=== PATIENT | male | born 1955 | race Caucasian/White ===

== ENCOUNTER 2018-09-27 02:59 | Inpatient (IN) | payer BC ==
[~2018-09-27] VITALS: Ht 188 cm; Wt 117.9 kg
[~2018-09-27 02:59] MED LIST: IBU800 M1 PO; PRI20 PO; ZESTRIL5 MG PO
[2018-09-27 03:02] VITALS: Ht 188 cm; Wt 117.9 kg
--- NOTE | 2018-09-27 03:20 | NUR ---
PT BIB C/O BILATERAL LOWER QUADRANT PAIN X1 DAY. DENIES ANY N/V AT THIS TIME. PT ALSO C/O BURNING ON URINATION X1 DAY. PT DENIES ANY INJURY. PT IS AAOX4, NO SOB, RESP E/U, SKIN IS PINK WARM AND DRY. PT WILL WINCE AND C/O PAIN FREQUENTLY. PT GOWNED, PLACED ON FULL CM, NSR, VSS, BED IN LOWEST POSITION, SIDERAIL X1 UP FOR SAFETY, CALL SCHWARTZ WITHIN REACH. AT THE BEDSIDE. AWAITING MSE BY .
--- NOTE | 2018-09-27 03:33 | NUR ---
PRE K LEAD TEACHER AT BEDSIDE FO RBLOOD DRAW.
--- NOTE | 2018-09-27 03:36 | NUR ---
DAVID POOL AT BEDSIDE FOR EKG.
[2018-09-27 04:00] LABS: CARBON DIOXIDE 26.3 mmol/L (21-32); CREATININE SERUM 1.5 mg/dL (0.7-1.3); POTASSIUM SERUM 3.5 mmol/L (3.5-5.1)
[2018-09-27 04:04] LABS: ALBUMIN 3.5 g/dL (3.4-5.0); BILIRUBIN TOTAL 1.8 mg/dL (0.20-1.00); TOTAL PROTEIN, SERUM 7.7 g/dL (6.4-8.2)
[2018-09-27 04:08] LABS: BASOPHIL % 0.4 % (0-2); PLATELET COUNT 224 x10^3mcL (130-400); RED CELL DISTRIBUTION WIDTH 12.3 % (11.5-14.5)
--- NOTE | 2018-09-27 04:38 | NUR ---
PT TAKEN OFF THE FLOOR VIA GURNEY TO IMAGING BY Direct Sitters. PT IN NO DISTRESS, RESP E/U
[2018-09-27] MEDS ORDERED: LISINOPRIL10 MG PO (05:34)
--- NOTE | 2018-09-27 05:34 | NUR ---
PT IN POSITION OF COMFORT IN [place]. PT IS AAOX4, NO DISTRESS NOTED, RESP E/U, SKIN IS PINK WARM AND DRY. PT REPORTS IMPROVED PAIN 3/10 AT THIS TIME. PT ON FULL CM, NSR, SINUS TACHY. WILL CONT TO MONITOR. AT THE BEDSIDE. PT DENIES ANY NAUSE OR VOMITING.
--- NOTE | 2018-09-27 06:19 | NUR ---
PT AWARE OF NPO STATUS
[2018-09-27 06:41] LABS: CHOLESTEROL/HDL RATIO 2.4
--- NOTE | 2018-09-27 06:47 | NUR ---
GAVE REPORT TO BRIANA MASON IN [place].
--- NOTE | 2018-09-27 07:05 | NUR ---
PREOP CHECKLIST COMPLETED, PT TAKEN OFF THE FLOOR TO OPERATING ROOM VIA VERENICE, PT IS AAOX4, NO DISTRESS NOTED, RESPS E/U. SKIN INTACT, WARM AND DRY. ACCOMPANIED NORBERTORSAUL.
[2018-09-27 07:49] LABS: AMPHETAMINE QUAL UR NONE DETECTED (See below)
[2018-09-27 09:41] LABS: microscopic required? YES; urine erythrocyte NEGATIVE (NEGATIVE)
[2018-09-27 10:10] VITALS: BP 110/61
--- NOTE | 2018-09-27 10:15 | NUR ---
PATIENT ARRIVED TO FLOOR WITH MARLON MCFADDEN. PATIENT IN [facility] ABLE TO TRANSFER SELF TO BED. PATIENT IS A/OX4, MILD ABDOMINAL PAIN AT THIS TIME. X3 SURGICAL INCISIONS CDI, AYDEN DRAIN PRESENT DRAINING SANGUINEOUS FLUID. AT BESIDE. INSTRUCTED PATIENT ON POST OP ILEUS, PAIN CONTROL, AND NEED FOR AMBULATION. BOTH PATIENT AND AGREE. CALL LIGHT IN REACH AT THIS TIME.
--- NOTE | 2018-09-27 11:28 | NUR ---
DR ULLOA AND TEAM IN TO SPEAK WITH PATIENT ABOUT PLAN OF CARE. PATIENT HAS MODERATE ABDOMINAL PAIN, PRN NORCO GIVEN. TEAM STATES PATIENT CAN HAVE SOLID FOOD. WILL CONTINUE TO MONITOR FOR PAIN, PATIENT TAUGHT AND AWARE OF IS USE WITH RT AND THIS NURSE.
[2018-09-27 13:33] VITALS: BP 110/61
--- NOTE | 2018-09-27 16:32 | NUR ---
PATIENT CONTINUES TO HAVE R QUADRANT ABDOMINAL PAIN. HE STATES THAT THE PRN NORCO PO AND PRN MORPHINE 2 MG "DOESN'T SEEM TO WORK" WITH 8/[address] CHOU AT [facility] AND IS MADE AWARE. DR CHOU AT THIS TIME STATES IT IS NOT NECESSARY TO ADJUST PAIN CONTROL AT THIS TIME. NOTIFIED PATIENT AND MADE AWARE. WILL CONTINUE TO ENCOURAGE AMBULATION, OOB, INCENTIVE SPIROMETER USE AND CURRENT PAIN CONTROL REGIMENT. CALL LIGHT IN REACH AT THIS TIME.
[2018-09-27 16:54] VITALS: BP 113/53
--- NOTE | 2018-09-27 18:13 | NUR ---
PATIENT WORRIED DUE TO SWEATING. BLINDS CLOSED, ORAL AND TEMPORAL TEMPS TAKEN, 98.6. PATIENT CONTINUES TO STATE HE HAS ABDOMINAL PAIN, PRN NORCO GIVEN, PATIENT REFUSES PRN MORPHINE AT THIS TIME, STATING THAT "IT DOESN'T DO ANYTHING ANYWAYS", PATIENT ALSO TAUGHT TO SPLIT ABDOMEN WITH WARM BLANKET AND PILLOW. WILL ENDORSE TO ONCOMING NURSE. CURRENTLY EATING DINNER TRAY, TOLERATING. CALL LIGHT IN REACH.
--- NOTE | 2018-09-27 19:46 | NUR ---
BEDSID HANDS OFF PERFORMED WITH OUT GOING NURSE SEKOU-MARLON. PATIENT ALERT AND ORIENTED X4, SPEECH CLEAR. S/SP LAP/APPY RUPTURED, X3 SURGICAL INCISION WITH DERMA ARMANDO, SITES CLEAR, AYDEN NOTED TO LEFT SIDE OF ABDOMEN DRAINING SS FLUID. ABDOMEN TENDER TO TOUCH, HYPOACTIVE BS, DENIED N/S. TOLERATED REGULAR DIET PER PATIENT, NO GAS NO BUPR REPORTED. VOIDED WITHOUT DIFF. PATIENT COMPLAINED OF POST SURGICAL INCISION PAIN RATED AT 7/10 MEDICATED WITH MS PER ORDERED PRN, COMFORT MEASURES MAINTAINED. BS CLEAR ALL GUERRERO DIMINISHED BASES, PATIENT ON ROOM AIR SAT 97%, PATIENT WAS ABLE TO PERFORMED INCENTIVE SPIROMETRY EXERCISE AT 1500 10X ENCOURAGED AND INFORMED ABOUT ITS PURPOSE AND INPORTANCE. SAFETY PRECAUTIONS MAINTAINED. SCD'S TO BLE IN USE.IV SITE TO RT AC PATENT AND INTACT. WILL CONTINUE TO MONITOR.
[2018-09-27 20:12] VITALS: BP 106/60
--- NOTE | 2018-09-27 21:32 | NUR ---
SCHEDULED MED ADMINISTERED, PATIENT ABLE TO TAKE PILLS, INFORMED OF ITS PURPOSE AND ACTION PRIOR. ASSITED IN SITTING AT EDGE OF BED, HEARD PATIENT BURPED. MEDICATED WITH NORCO SINCE MS ONLY TOOK THE PAIN LEVEL TO 3/10. WILL MONITOR EFFECTIVENESS.
--- NOTE | 2018-09-27 22:41 | NUR ---
PATIENT FINALLY STOOD UP AND TOOK SOME STEPS, FELT LITTLE BETTER STATED. ENCOURAGED IS AND AMBULATION.WILL CONTINUE TO MONITOR.
--- NOTE | 2018-09-28 01:08 | NUR ---
COMPLAINED OF ABDOMINAL SURGICAL PAIN RATED AT 7/10, MEDICAETD PRN. DT=640/59, MAP=81, HR=60BPM, SAT ON RA 98%. ALSO REQUESTED FOR SLEEPING MEDS. MEDICATED PRN. WILL CHECK EFFECTIVENESS.
--- NOTE | 2018-09-28 02:07 | NUR ---
PATIENT SLEEPING OFF AND ON, RATED PAIN AT 3/10. COMFORTABLE. WILL CONTINUE TO MONITOR.
--- NOTE | 2018-09-28 02:44 | NUR ---
PATIENT CALLED AND REQUESTED TO ASSIST HIM IN AMBULATORY TO TRY TO EXPELL GAS, PATIENT AMBULATION WITH ASSIST FROM ROOM TO HALLWAY THE LLWAY,HEARD HIM BURPED NUMEROUS TIMES, STATED WAS PAINFUL TO WALK BUT FELT BETTER AFTERWARDS. INFORMED HIM THE IMPORTANCE OF AMBULATION. BACK IN BED WITHOUT ANY ISSUES. WILL CONITNUE TO MONITOR.
--- NOTE | 2018-09-28 04:22 | NUR ---
COMPLAINED OF POST SURGICAL ABDOMINAL PAIN, RATED AT 6/10 MORPHINE SULFATE NOT TIME YET TO BE GIVEN, NORCO GIVEN INSTEAD, WILL MONITOR EFFECTIVENESS.
--- NOTE | 2018-09-28 05:17 | NUR ---
DR ZAVALA INFORMED ABOUT PATIENT PAIN. WILL COME SEE PATIENT.
--- NOTE | 2018-09-28 05:31 | NUR ---
DR ZAVALA WENT TO PATIENT ROOM AND SPOKE TO HIM.
--- NOTE | 2018-09-28 05:49 | NUR ---
MEDICATED PRN FORM COMPLAINT OF ABDOMINAL SURGICAL PAIN. WILL CHECK EFFECTIVENESS.
[2018-09-28 05:51] VITALS: BP 112/52
[2018-09-28 06:24] LABS: PLATELET COUNT 184 x10^3mcL (130-400)
--- NOTE | 2018-09-28 06:28 | NUR ---
PATIENT SLEPT OFF AND ON DURING THE SHIFT, WAS MEDICATED WITH MORPHINE SULFATE AND NORCO ALTERNATELY FOR COMPLAINT OF ABDOMINAL SURGICAL PAIN,RECEIVED MIN RELIEF. DR CHOU WAS IN PATIENT ROOM EARLIER AND UPDATED PATIENT WITH CONDITION AND PLAN OF CARE. VOIDED WITHOUT DIFF. AYDEN DRAINED SS FLUID 80 ML, EMPTIED AND COMPRESSED FOR SUCTION, DRESSING CDI, INCISION X3 NO BLEEDING AT SITE,DIDNT PASS GAS YET, BURPED 5X. HAD AMBULATED X1, ENCOURAGED TO DO MORE THIS MORNING. SAFETY PRECAUTIONS MAINTAINED. WILL ENDORSE CONTINUITY OF CARE TO INCOMING NURSE.
[2018-09-28 06:45] LABS: CALCIUM 8.7 mg/dL (8.5-10.1); CARBON DIOXIDE 29.2 mmol/L (21-32); CREATININE SERUM 1.4 mg/dL (0.7-1.3)
--- NOTE | 2018-09-28 07:20 | NUR ---
RECEIVED PATIENT SITTING UP IN BED A/O X4, CLEAR SPEECH, NO NEURO DEFICITS NOTED. DENIES ANY CHEST PAIN. BREATHING EVEN AND UNLABBORED ON O2 1 L/MIN VIA NC, O2 SAT 97%, DENIES SOB. PATIENT IS S/P LAP APPY ON 09/27/18 WITH INCISION X3 TO ABD CLOSED WITH DERMABOND AND AYDEN DRAIN TO LEFT SIDE OF ABD WITH SEROSANGUINOUS DRAINAGE NOTED, DSG CDI. IV TO RFA INTACT INFUSING IVF WELL FREE FROM REDNESS AND INFILTRATION. PATIENT IS CALM WITH CARE. INSTRUCTED TO CALL FOR ASSISTANCE IF NEEDED. SAFETY PRECAUTIONS MAINTAINED. WILL MONITOR.
--- NOTE | 2018-09-28 07:28 | NUR ---
BEDSIDE HANDS OFF PERFORMED WITH INCOMING NURSE FIDEL-MARLON.
--- NOTE | 2018-09-28 08:15 | NUR ---
PATIENT C/O SHARP ABD PAIN 10/15, OFFERED NORCO PO AND MAY ALSO MEDICATE PATIENT WITH MORPHINE IVP FOR BREAKTHROUGH PAIN IF STILL IN PAIN, BUT PATIENT STATED "NO, WHY BOTHER" AND "NEITHER MEDICATION HELPS". PATIENT REFSUED PAIN MEDICATION AT THIS TIME, FAMIL AT BEDSIDE. ENCOURAGED PATIENT TO NOTIFY MD WHEN ROUNDS ARE MADE, PATIENT VERBALIZED UNDERSTANDING, CALM AND COOPERATIVE WITH CARE. ALL NEEDS ATTENDED TO, SAFETY PRECAUTIONS MAINTAINED. US TECH AT BEDSIDE.
--- NOTE | 2018-09-28 08:43 | NUR ---
IVF DECREASED TO 100 ML/HR PER DR. CHOU ORDERS.
[2018-09-28 09:29] VITALS: BP 107/61
--- NOTE | 2018-09-28 11:15 | NUR ---
PATIENT SITTINGUP IN BED, NO DISTRESS NOTED, PROVIDED PATIENT WITH A CUP OF ICE CHIPS PER PATIENT REQUEST. ALL NEEDS ATTENDED TO. SAFETY PRECAUTIONS MAINTAINED. WILL MONITOR.
--- NOTE | 2018-09-28 11:40 | NUR ---
AT 1132: PATIENT C/O NAUSEA, MEDICATED WITH ZOFRAN 4 MG IVP Q4H PRN. PATIENT ALSO C/O SHARP ABD PAIN 10/10, MEDICATED WITH MORPHINE IVP (SEE eMAR). ALL NEEDS ATTENDED TO, SAFETY PRECAUTIONS MAINTAINED. WILL MONITOR.
--- NOTE | 2018-09-28 13:35 | NUR ---
SPOKE WITH DR. PETERSON AND INFORMED HER PATIENT IS C/O SHARP ABD PAIN. ALSO INFORMED HER PATIENT RECEIVED MORPHINE AT 1140 (SEE eMAR); PATIENT WAS OFFERED NORCO PO BUT PATIENT REFUSED MEDICATION, STATED IT DOES NOT WORK. PER DR. SEYMOUR SHE WILL SPEAK WITH DR. KNIGHT REGARDING PAIN MEDICATION MANAGMENT. NO FURTHER ORDERS RECEIVED. WILL MONITOR.
[2018-09-28 13:44] LABS: BAND NEUTROPHIL 12 % (0-10); BASOPHIL 0 % (0-2); MONOCYTE 5 % (0-7); PLATELET MORPHOLOGY GIANT PLATELET SEEN; SEGMENTED NEUTROPHILS 76 % (37-75); rbc morphology (normal/abnorm) NORMAL (NORMAL)
--- NOTE | 2018-09-28 14:15 | NUR ---
PATIENT C/O SHARP ABD PAIN 12/15, RECEIVED AN ORDER FOR ONE TIME DOSE OF DILAUDID 0.5 MG IVP, AT FIRST PATIENT REFUSED MEDICATION, DR. CHOU MADE AWARE AND CAME TO SPEAK WITH PATIENT. PATIENT AGREED TO TAKE MEDICATION, MEDICATED WITH DILAUDID ONE TIME (SEE eMAR). ALL NEEDS ATTENDED TO. SAFETY PRECAUTIONS MAINTAINED. WILL MONITOR.
--- NOTE | 2018-09-28 14:35 | NUR ---
DR. REA AT BEDSIDE TO SPEAK WITH AND ASSESS PATIENT. INFORMED DR. REA OF CURRENT OUTPUT OF AYDEN DRAIN OF 110, PATIENT DENIES PASSING GAS, AND STATES HE HAS ONLY GOT UP OUT OF BED TO WALK TO RESTROOM. DR. REA ENCOURAGED PATIENT TO GET UP AND WALK IN HALLWAY TO PREVENT PNA, PATIENT AND VERBALIZED UNDERSTANDING, PT S/L AT THIS TIME SO PATIENT CAN WALK, WILL RECONNECT WHEN PATIENT IS BACK IN BED, WILL NOTIFY GUN PERFORATOR TO HELP PATIENT. ALL QUESTIONS AND CONCERNS ADDRESSED. SAFETY PRECAUTIONS MAINTAINED, WILL MONITOR.
--- NOTE | 2018-09-28 15:44 | NUR ---
PATIENT SEEN RESTING IN BED COMFORTABLY WITH EYES CLOSED, BREATHING EVEN AND UNLABBORED, NO DISTRESS NOTED. SPOKE WITH AT BEDSIDE WHO STATED PATIENT DID GET UP TO WALK IN HALLWAY, NURSE AID ALSO STATED PATIENT WALKED. WILL CONTINUE TO ENCOURAGE PATIENT TO WALK TOLERATED IN HALLWAY. SAFETY PRECAUTIONS MAINTAINED. WILL MONITOR.
--- NOTE | 2018-09-28 16:47 | NUR ---
PATIENT C/O SHARP ABD PAIN 10/15, MEDICATED WITH MORPHINE IVP (SEE eMAR). ALL NEEDS ATTENDED TO, SAFETY PRECAUTIONS MAINTAINED. WILL MONITOR.
[2018-09-28 17:50] VITALS: BP 109/56
--- NOTE | 2018-09-28 18:04 | NUR ---
PATIENT SITTING UP IN BED C/O NAUSEA, MEDICATED WITH ZOFRAN 4 MG IVP (SEE eMAR). IV TO LFA INTACT INFUSING IVF WELL FREE FROM REDNESS AND INFILTRATION. ALL NEEDS ATTENDED TO DURING SHIFT. PATIENT IS CALM WITH CARE. INSTRUCTED TO CALL FOR ASSISTANCE IF NEEDED. SAFETY PRECAUTIONS MAINTAINED. WILL ENDORSE CARE TO ONCOMING NURSE.
--- NOTE | 2018-09-28 19:50 | NUR ---
RECEIVED REPORT FROM DAY SHIFT RN. PT RESTING IN BED. NO SOB ON ROOM AIR. PT C/O ABD DISCOMFORT. PT WANTS "SOMETHING FOR GAS." DENIES N/V AT THIS TIME. IV TO LFA, NS INFUSING. ABD INCISION X3 CLOSED WITH DERMABOND. AYDEN DRAIN TO LEFT SIDE OF ABD WITH SEROSANGUINOUS DRAINAGE, DRESSING C/D/I. SAFETY MEASURES IN PLACE. BED IN LOWEST POSITION. SIDE RAILS UP X2. INSTRUCTED PT TO USE THE CALL LIGHT FOR ASSISTANCE. CALL LIGHT WITHIN REACH.
[2018-09-28 20:56] VITALS: BP 106/68
--- NOTE | 2018-09-28 21:20 | NUR ---
DR ZAVALA AT BEDSIDE. ENCOURAGED PT TO AMBULATE TO RELIEVE GAS DISCOMFORT.
--- NOTE | 2018-09-29 00:41 | NUR ---
ZOFRAN GIVEN FOR NAUSEA.
--- NOTE | 2018-09-29 01:00 | NUR ---
PT RESTING WITH EYES CLOSED. NO SOB ON ROOM AIR. NO FACIAL GRIMACING. CALL LIGHT WITHIN REACH. WILL CONTINUE TO MONITOR.
[2018-09-29 05:05] VITALS: BP 113/64
[2018-09-29 06:42] LABS: PLATELET COUNT 260 x10^3mcL (130-400); RED CELL DISTRIBUTION WIDTH 13.5 % (11.5-14.5)
--- NOTE | 2018-09-29 06:47 | NUR ---
PT RESTED IN INTERVALS. NO SOB ON ROOM AIR. PT AMBULATED ALONG THE HALLWAY X3. PT STATES BURPING, BUT NOT PASSING GAS. AYDEN DRAIN INTACT, EMPTIED TOTAL OF 260 ML OF SEROSANGUINOUS DRAINAGE. ABD INCISION X3 INTACT, NO BLEEDING. ENCOURAGED PT TO AMBULATE. SAFETY MEASURES MAINTAINED. CALL LIGHT WITHIN REACH. WILL ENDORSE CONTINUITY OF CARE TO DAY SHIFT RN.
--- NOTE | 2018-09-29 08:00 | NUR ---
PATIENT RECEIVED ALERT AND OOB AND AMBULATING THE HALLWAY. PATIEN TIS GROANING AND WHINCING HE WALKS AND ADVISED HOW IMPORTANT AMBULATION, DEEP BREATHING IS. PATIENT HAS APPARENTLY HAD HICCUPS AND WANTS THE MEDICATION FOR THIS. NO HICCUPS NOTED AT THIS TIME. HE COMPLAINTS OF NAUSEA WELL. GAVE BOTH THE ZOFRAN AND THORAZINE ORDERED. PATIENT IS COMPLAINING HE CANT SWALLOW PILLS AND WANTS TO CHEW THE MEDICATION. PATIENT THOUGH HAS ADVISED THE MEDICATION TASTES LIKE SOAP AND MAY WANT TO CONSIDER JUST SALLOWING IT. PATIENT COMPLAINED OF THE THORAZINE BURNING AND LET OUT A LITTLE SCREAM. PATIENT HAS BEEN VERY ANAMATED ABOUT THE DISCOMFORT AND STATES HE HAS PAIN WITH URINATION AND HE DOES NOT THINK IT SHOULD HURT SO BAD. HE HAS BEEN ASKIGN STAFF TO RAISE ADN LOWER THE BED AND DIRRECTED HIM TO THE BED CONTROLS AND ENCOURAGE TO DEEP BREATH AND TO AMBULATE. OOB TO THE RESTROOM AND TOLERATED WELL. HE HAS NOT HAD A BM YET TODAY AND HAS BEEN BURING AND PASSING GAS. VITALS AT THIS TIME ARE STABLE AT 98.3, 75, 16, 113/64, 96% ON ROOM AIR. PATIENT AHS AYDEN TO DRAINAGE AND THE OUTPUT OIS SEROUS SANGUINOUS AND NOTED LABS ARE THE WBC AT 17.2, AND THE CREATININE AT 1.4, AND THE PATIENT HAS BEEN ON ZOSYN WITH NO ADVERSE REACTION. WILL CONTNUE TO MONITOR INDICATED. T
--- NOTE | 2018-09-29 09:00 | NUR ---
SEEN BY THE RESIDENTS AND PLAN OF CARE WAS DISCUSSED.
[2018-09-29 09:43] VITALS: BP 141/77
--- NOTE | 2018-09-29 10:00 | NUR ---
PATIENT GIVEN NORCO AFTER GETTING THE MEDICAITON REORDERED. BUTCH SANTOS ROSELIA THTE BACK, SHOULDERS AND NECK.
--- NOTE | 2018-09-29 10:00 | NUR ---
AND ANOTHER FEMALE AT BEDSIDE AND SUPPORTIVE WITH CARE. THE WALKED THE PATIENT IN THE HALLWAY AND APPEARS TO HAVE TOLERATED WELL.
[2018-09-29 10:19] LABS: BAND NEUTROPHIL 9 % (0-10); BASOPHIL 0 % (0-2); MONOCYTE 6 % (0-7); PLATELET MORPHOLOGY GIANT PLATELET SEEN; SEGMENTED NEUTROPHILS 80 % (37-75); rbc morphology (normal/abnorm) ABNORMAL (NORMAL); tear drop cell (dacryocyte) 1+
[2018-09-29 10:24] LABS: CALCIUM 8.9 mg/dL (8.5-10.1); CARBON DIOXIDE 24.9 mmol/L (21-32); CREATININE SERUM 1.6 mg/dL (0.7-1.3); POTASSIUM SERUM 3.7 mmol/L (3.5-5.1)
--- NOTE | 2018-09-29 13:16 | NUR ---
PATIENT GIVEN THE MYLOCON AND HE WAS ANXIOUS ABOUT TAKING THIS AND SEEMS HE HAS BEEN ANXIOUS ABOUT MANY THINGS. ENCOUAGED TO TRUST THE STAFF AND FOLLOW DIRECTIONS. PATIENT IS VERY DISTRACTED AND HAS SOME RESISTANCE TO CARE. WILL MONITOR FOR ANY AFFECT AT THIS TIME
--- NOTE | 2018-09-29 16:18 | NUR ---
PATIENT OOB AND WHINCING HE WALKS THE HALLWAY. BACK TO BED NOW AND RESTING. WILL CONTINUE TO MONITOR.
[2018-09-29 18:16] VITALS: BP 135/71
--- NOTE | 2018-09-29 19:40 | NUR ---
RECEIVED REPORT FROM DAY SHIFT RN. PT SITTING UP IN BED. AA&O X4. BREATHING EVEN AND UNLABORED. NO DISTRESS NOTED. IV TO LEFT WRIST, D51/2 NS INFUSING. ABD INCISIONS X3 WITH DERMABOND. AYDEN DRAIN WITH SEROSANGUINOUS OUTPUT, DRESSING INTACT. ENCOURAGED PT TO USE THE I.S. AND TO AMBULATE. SAFETY MEASURES IN PLACE. BED IN LOWEST POSITION. SIDE RAILS UP X2. INSTRUCTED PT TO USE THE CALL LIGHT FOR ASSISTANCE. CALL LIGHT WITHIN REACH. AT BEDSIDE.
[2018-09-29 21:38] VITALS: BP 125/68
--- NOTE | 2018-09-29 23:54 | NUR ---
AMBIEN GIVEN FOR INSOMNIA.
--- NOTE | 2018-09-30 01:00 | NUR ---
DRESSING AROUND AYDEN DRAIN WET. SECURED THE AYDEN DRAIN AND CHANGED THE DRESSING. PT TOLERATED IT. NO C/O PAIN. NO DISTRESS NOTED.
[2018-09-30 05:16] VITALS: BP 120/45
--- NOTE | 2018-09-30 06:38 | NUR ---
PT RESTED IN INTERVALS THROUGHOUT SHIFT. NO SOB ON ROOM AIR. NO C/O PAIN. AYDEN DRAIN WITH 140 ML SEROSANGUINOUS OUTPUT. DRESSING AROUND AYDEN DRAIN SITE SATURATED. DRESSING CHANGED X2 DURING SHIFT. DR ZAVALA MADE AWARE. NO NEW ORDERS AT THIS TIME. PT STATES BURPING BUT NOT PASSING GAS YET. PT AMBULATES ALONG THE HALLWAY. SAFETY MEASURES MAINTAINED. CALL LIGHT WITHIN REACH. WILL ENDORSE CONTINUITY OF CARE TO DAY SHIFT RN.
[2018-09-30 06:48] LABS: BASOPHIL % 0.2 % (0-2); PLATELET COUNT 249 x10^3mcL (130-400)
[2018-09-30 07:13] LABS: CALCIUM 8.6 mg/dL (8.5-10.1); CARBON DIOXIDE 33.2 mmol/L (21-32); CREATININE SERUM 1.4 mg/dL (0.7-1.3); POTASSIUM SERUM 3.6 mmol/L (3.5-5.1)
--- NOTE | 2018-09-30 07:45 | NUR ---
ALERT AND ORIENTED. BREATHING FREELY ON RA. DENIED NEED FOR PAIN MED AT THIS TIME. ALTHOUGH PT IS GETTING HICK UPS AGAIN. WILL ADMIN THORAZINE. D51/2 NS INFUSING 100 CC HOUR TO LEFT WRIST. INDEPENDENT W ADL'S. AMBULATORY. PASSING SM AMT GAS THIS AM. FULL LIQUID DIET. DRESSING TO ABD SURGICAL SITE MOIST WITH BEIGE DRAINAGE. AYDEN DRAIN WITH SCANT AMT SEROUS FLUID. CALL LIGHT WITHIN REACH.
[2018-09-30 08:19] VITALS: BP 110/44
[2018-09-30] MEDS ORDERED: IBUPROFEN400 MG PO (10:06)
--- NOTE | 2018-09-30 12:19 | NUR ---
REMOVED EXSISTING DRESSING STAINED WITH YELLOW DRAINAGE FROM AYDEN DRAIN SITE ON ABD. RECOVERED WITH DRAIN GAUZE AND ABD PADS X 2 AND PAPER TAPE. INCISIONS APPROXIMATED PINK AT SITES. TOLERATED WELL.
[2018-09-30 16:50] VITALS: BP 106/56
--- NOTE | 2018-09-30 18:12 | NUR ---
RESTING QUIELTY. TOLERATES FULL LIQUID DIET. VSS. AFEBRILE. AYDEN DRAIN DRAINING SEROSANGUINOUS FLUID, 50 CC THIS SHIFT. SEEN BY DR. REA TODAY. BRP. CONTINUES ON D51/2 NS 100 CC HOUR AND ZOSYN IV ABX. DRESSING CHANGE X 1. DRAINAGE NOTED AROUND AYDEN DRAIN SITE. CALL LIGHT WITHIN REACH. INDEPENDENT WITH ADL'S.
--- NOTE | 2018-09-30 19:30 | NUR ---
RECIEVED PT IN NO ACUTE DISTRESS. AOX4. MED SURG. BREATHING E/U. S/P LAP APPY 09/27. 3 ABD LAP SITES WITH DERMABOND, CDI. AYDEN DRAIN WITH DRESSING CDI, MODERATE SEROSANGEINOUS OUPUT NOTED. C/O 2/10 INCISIONAL PAIN, STATES IS TOLERATE AND DOES NOT WANT MEDS. FREQUENT HICCUPS NOTED. IV TO LW, PATENT AND INFUSING. CONTACT PRECAUTIONS MAINTAINED. BED IN LOWEST POSITION, 2 SIDE RAILS UP, CALL LIGHT IN REACH. INSTRUCTED TO CALL FOR ASSISTANCE.
[2018-09-30 22:18] VITALS: BP 101/53
--- NOTE | 2018-10-01 02:41 | NUR ---
PT C/O NUMBNESS TO LLE. DR. ZAVALA MADE AWARE. AT BEDSIDE TO ASSESS.
[2018-10-01 05:51] VITALS: BP 131/42
[2018-10-01 06:34] LABS: BASOPHIL % 0.8 % (0-2); PLATELET COUNT 222 x10^3mcL (130-400); RED CELL DISTRIBUTION WIDTH 13.4 % (11.5-14.5)
--- NOTE | 2018-10-01 06:50 | NUR ---
PT AMBULATED AROUND UNIT MULTIPLE TIMES OVERNIGHT. ABD INCISIONS REMAIN INTACT. NO C/O PAIN. WILL ENDORSE TO ONCOMING RN.
[2018-10-01 06:54] LABS: CALCIUM 8.1 mg/dL (8.5-10.1); CARBON DIOXIDE 26.3 mmol/L (21-32); CREATININE SERUM 1.4 mg/dL (0.7-1.3); POTASSIUM SERUM 3.2 mmol/L (3.5-5.1)
--- NOTE | 2018-10-01 07:48 | NUR ---
A+OX4, NO RESPRIATORY DISTRESS NOTED, DENIES PAIN, MEDSURG, PULSES MODERATE AND EQUAL ALICE, NO EDEMA NOTED, LUNG SOUNDS CTA, TOLERATING RA, BOWEL SOUNDS ACTIVE, VOIDING FREELY, AMBULATORY, ABD INCISION X3 WITH DERMABOND, AYDEN DRAIN TO L ABD, CDI, IV IN L WRIST WITH D5 1/2 NS @ 100 ML/HR, SITE WNL, CALL LIGHT WITHIN REACH.
[2018-10-01 08:50] VITALS: BP 115/61
--- NOTE | 2018-10-01 10:30 | NUR ---
PT AMBUALTING AROUND UNIT INDEPENDENTLY, NO RESPIRATORY DISTRESS NOTED, DENIES PAIN.
--- NOTE | 2018-10-01 12:30 | NUR ---
PT RESTING IN BED, NO RESPIRATORY DISTRESS NOTED, STATES PAIN IS TOLERABLE AT THIS TIME, CALL LIGHT WITHIN REACH.
--- NOTE | 2018-10-01 16:09 | NUR ---
PT COMPLAINING OF PAIN IN L WRIST IV, IV LEAKING AND PAINFUL TO FLUSH, IV IN L WRIST REMOVED WITH CATHETER INTACT, GAUZE AND TAPE PLACED ON SITE. NEW IV PLACED IN RFA BY VICTORIANO MASON, SITE WNL,BLOOD RETURN PRESENT, INFUSING WELL. DRESSING TO ABD INCISIONS LEAKING, NEW DRESSING PLACED BY VICTORIANO MASON. CALL LIGHT WITHIN REACH.
[2018-10-01 16:24] VITALS: BP 125/54
--- NOTE | 2018-10-01 17:31 | NUR ---
PT RESTING IN BED, NO RESPRIATORY DISTRESS NOTED, DENIES PAIN, CALL LIGHT WITHIN REACH.
--- NOTE | 2018-10-01 17:33 | NUR ---
30 ML YELLOW FLUID EMPTIED FROM AYDEN DRAIN, CDI.
--- NOTE | 2018-10-01 18:54 | NUR ---
PT RESTING IN BED, NO RESPIRATORY DISTRESS NOTED, STATES PAIN IS TOLERABLE AT THIS TIME, CALL LIGHT WITHIN REACH.
--- NOTE | 2018-10-01 19:14 | NUR ---
ENDORSED CARE TO MARIUSZ MASON.
--- NOTE | 2018-10-01 19:30 | NUR ---
PT SEEN, SITTING AT EDGE OF BED, ALERT AND ORIENTED, DENIES HEADACHE OR DIZZINESS, BREATHING EVEN AND UNLABORED, LUNG SOUNDS CLEAR, ON ROOM AIR WITH NO RESP DISTRESS NOTED, IS AT BEDSIDE, IVF INFUSING WELL, PULSES PALPABLE, NO EDEMA NOTED, AMBULATORY WITH STEADY GAIT, S/P LAP APPY WITH AYDEN DRAINING SEROSANGUINOUS OUTPUT, 3 INCISIONS WITH DERMABOND, (+) GAS AND BM AFTER SURGERY, VOIDING FREELY, NEEDY AT TIMES, NO DISTRESS NOTED, WILL KEEP TO MONITOR.
[2018-10-01 20:39] VITALS: BP 123/60
--- NOTE | 2018-10-02 05:35 | NUR ---
PT AWAKE AND AMBULATING IN THE HALLWAY, SLEPT ON AND OFF WHOLE NIGHT, IVF INFUSING WELL, NO FEVER SINCE BEGINNING OF SHIFT, TOTAL OUTPUT FROM AYDEN-45 ML SEROSANGUINEOUS COLOR, REMAINS ON CONTACT ISOLATION, NO DISTRESS NOTED, WILL KEEP TO MONITOR.
[2018-10-02 05:53] VITALS: BP 147/73
[2018-10-02 06:24] LABS: CARBON DIOXIDE 23.3 mmol/L (21-32); CREATININE SERUM 1.4 mg/dL (0.7-1.3); POTASSIUM SERUM 3.6 mmol/L (3.5-5.1)
[2018-10-02 06:43] LABS: BASOPHIL % 0.6 % (0-2); PLATELET COUNT 245 x10^3mcL (130-400); RED CELL DISTRIBUTION WIDTH 13.4 % (11.5-14.5)
--- NOTE | 2018-10-02 07:13 | NUR ---
BEDSIDE HANDOFF REPORT DONE WITH DAGOBERTO-RN, ALL QIESTIONS ANSWERED AND CONCERNS ADDRESSED.
--- NOTE | 2018-10-02 07:59 | NUR ---
DR COBOS AT BEDSIDE TO ASSESS PT, REMOVED AYDEN DRAIN WITH CATHETER INTACT. I PLACED A NEW DRESSING ON INCISION SITE WITH 4X4S AND ABD PAD ORDERED BY DR REA. A+OX4, NO RESPIRATORY DISTRESS NOTED, MEDSURG, PULSES MODERATE AND EQUAL ALICE, NO EDEMA NOTED, LUNG SOUNDS CTA, TOLERATING RA, BOWEL SOUNDS ACTIVE, VOIDING FREELY, GENERALIZED WEAKNESS, AMBULATORY, ABD INCISIONS X3 WITH DERMABOND COVERED WITH 4X4S AND ABD PADS, CDI, IV IN RFA WITH D5 1/2 NS @ 100 ML/HR, SITE WNL.
--- NOTE | 2018-10-02 09:05 | NUR ---
PT RESTING IN BED, COMPLAINING OF ABD CRAMPING, REQUESTING TYLENOL, TYLENOL PO GIVEN, AT BEDSIDE, CALL LIGHT WITHIN REACH.
[2018-10-02 09:08] VITALS: BP 131/70
--- NOTE | 2018-10-02 09:39 | NUR ---
PT AMBULATING AROUND UNIT INDEPENDENTLY, NO RESPIRATORY DISTRESS NOTED, GAIT STEADY.
--- NOTE | 2018-10-02 11:56 | NUR ---
PT RESTING IN BED, NO RESPIRATORY DISTRESS NOTED, DENIES PAIN, CALL LIGHT WITHIN REACH.
--- NOTE | 2018-10-02 14:34 | NUR ---
PT AMBULATING AROUND UNIT INDEPENDENTLY, GAIT STEADY, NO RESPRIATORY DISTRESS NOTED.
[2018-10-02 16:12] VITALS: BP 120/57
--- NOTE | 2018-10-02 18:39 | NUR ---
PT RESTING IN BED, NO RESPIRATORY DSITRESS NOTED, DENIES PAIN, AT BEDSIDE, CALL LIGHT WITHIN REACH.
--- NOTE | 2018-10-02 19:23 | NUR ---
ENDORSED CARE TO MARIUSZ MASON.
--- NOTE | 2018-10-02 19:46 | NUR ---
PT SEEN, SITTING AT EDGE OF BED, ALERT AND ORIENTED X 4 AND VERY VERBALLY RESPONSIVE, DENIES HEADACHE OR DIZZINESS, BREATHING EVEN AND UNLABORED, LUNG SOUNDS CLEAR, ON ROOM AIR WITH NO RESP DISTRESS NOTED, IS AT BEDSIDE, IVF INFUSING WELL, PULSES PALPABLE, NO EDEMA NOTED, AMBULATORY WITH STEADY GAIT, S/P LAP APPY WITH 3 INCISIONS, INCISIONS SITE WITH DERMABOND, (+) GAS AND BM AFTER SURGERY, ABD ROUND WITH ACTIVE BS, NO BM AT THIS TIME, VOIDING FREELY, NEEDY AT TIMES, NO DISTRESS NOTED, WILL KEEP TO MONITOR.
[2018-10-02 20:47] VITALS: BP 139/65
--- NOTE | 2018-10-03 00:17 | NUR ---
ALL DUE MEDS GIVEN, PT ASLEEP BUT EASILY AROUSABLE, DENIES ANY PAIN OR DISCOMFORT AT THIS TIME, WILL CONTINUE TO MONITOR.
[2018-10-03 05:51] VITALS: BP 130/63
--- NOTE | 2018-10-03 06:11 | NUR ---
PT AWAKE AND RESTING IN BED, SLEPT MOST OF NIGHT, IVF INFUSING WELL, NO FEVER SINCE BEGINNING OF SHIFT, PT C/O OF ITCHING WITH DRESSING TO ABD, NOTED MILD RASH AROUND WITH PAPERTAPE, DRESSING REMOVED, ALL INCISIONS DRY AND NO ACTIVE DRAINAGE NOTED, OPTIFORMS 4*4 APPLIED, NO DISTRESS NOTED, WILL KEEP TO MONITOR.
[2018-10-03 06:37] LABS: BASOPHIL % 0.6 % (0-2); PLATELET COUNT 267 x10^3mcL (130-400); RED CELL DISTRIBUTION WIDTH 13.5 % (11.5-14.5)
[2018-10-03 06:59] LABS: CARBON DIOXIDE 26.3 mmol/L (21-32); CREATININE SERUM 1.4 mg/dL (0.7-1.3)
--- NOTE | 2018-10-03 07:21 | NUR ---
BEDSIDE HANDOFF REPORT GIVEN TO ARISTEO-MARLON, ALL QUESTIONS ANSWERED AND CONCERNS ADDRESSED.
--- NOTE | 2018-10-03 07:40 | NUR ---
PATIENT RESTING IN BED, NO ACUTE DISTRESS NOTED AT THIS TIME. DENIES PAIN AT THIS TIME. NO RESP DISTRESS NOTED, PATIENT ON ROOM AIR, DENIES SOB. DRESSING X4 TO ABDOMEN CDI. NS IV INFUSING TO RFA AT 100ML/HR, IV SITE CDI & PATENT, NO S/S OF INFILTRATION. CALL LIGHT WITHIN REACH, BED IN LOW POSITION, WILL CONTINUE TO MONITOR FOR CHANGES.
[2018-10-03 08:46] VITALS: BP 123/50
--- NOTE | 2018-10-03 13:00 | NUR ---
PATIENT SITTING UP IN BED, EATING LUNCH. PATIENT TOLERATING DIET. PATIENT DENIES PAIN AT THIS TIME. NO ACUTE DISTRESS NOTED, CALL LIGHT WITHIN REACH. WILL CONTINUE TO MONITOR FOR CHANGES.
[2018-10-03 16:51] VITALS: BP 126/64
--- NOTE | 2018-10-03 17:20 | NUR ---
DR REA AT BEDSIDE, SPOKE WITH PATIENT REGARDING PLAN OF CARE. PATIENT MAY POSSIBLY GO HOME TOMORROW WITH ANTIBIOTICS. ALL QUESTIONS AND CONCERNS ADDRESSED, CALL LIGHT WITHIN REACH, WILL CONTINUE TO MONITOR.
--- NOTE | 2018-10-03 18:20 | NUR ---
PATIENT IS SITTING UP AT BEDSIDE, NO ACUTE CHANGES NOTED THROUGH OUT SHIFT, PATIENT IS STABLE. PATIENT DENIES PAIN. NS IV INFUSING TO RFA AT 100ML/HR, IV SITE CDI&PATENT. CALL LIGHT WITHIN REACH, BED IN LOW POSITION. WILL ENDORSE REPORT TO NIGHT RN.
--- NOTE | 2018-10-03 19:30 | NUR ---
RECEIVED PT RESTING IN BEDSIDE CHAIR, NO ACUTE DISTRESS NOTED. PT AOX4, DENIES SHERWOOD/DIZZINESS. MEDSURG PT, DENIES CP. PULSES PALPABLE BILAT, DENIES NUMBNESS/TINGLING IN FEET. RESP EVEN AND UNLABORED ON RA, DENIES SOB. AND SOFT, ROUND, PT S/P LAP APPY (09/27) WITH FINDINGS OF A GANGANEOUS/PERFORATED APPENDIX. PT ON ZOSYN. PT HAD AYDEN DRAIN REMOVED 10/02, ALL SURGICAL SITES COVERED WITH OPTIFORM. CDI. PT APPEARS TO HAVE AN ALLERGIC REACTION ON STOMACH FROM POSSIBLY THE TAPE USED. BLISTERS ON ABD NEAR WAISTBAND. BLISTERS ARE CLOSED WITH FLUID INSIDE, ENCOURAGED PT NOT TO SCRATCH D/T INCREASED RISK OF INFECTION. PT VERBALIZES UNDERSTANDING, IV SITE TO THE RFA PATENT, SLIGHT REDNESS FROM TAPE NOTED. CALL LIGHT WITHIN REACH, BED IN LOWEST POSITION, WILL CONTINUE TO MONITOR.
[2018-10-03 20:31] VITALS: BP 137/72
--- NOTE | 2018-10-03 21:30 | NUR ---
PT UP TO SHOWER, COVERED IV SITE TO PREVENT INFECTION. AT BEDSIDE, PT DENIES LIGHTHEADEDNESS/DIZZINESS. SUPPLIED PROVIDED, WILL KEEP CLOSE EYE FOR SAFETY.
--- NOTE | 2018-10-03 22:30 | NUR ---
PERFORMED DSG CHANGED PER REQUEST FOR PT ABD INCISIONS, PT TOLERATED WELL. MINIMAL YELLOW DRAINAGE NOTED TO MID LOWER INCISION, OTHER INCISIONS WERE DRY UPON ASSESSMENT. CLEANSED SITE WITH NS, PADDED DRY, APPLIED OPTIFORM. PT TOLERATED WELL. CALL LIGHT WITHIN REACH, BED IN LOWEST POSITION, WILL CONTINUE TO MONITOR.
--- NOTE | 2018-10-03 22:35 | NUR ---
PT EXPRESSING PAIN AT IV SITE, UPON ASSESSMENT PT HAS SLIGHT REDNESS TO INNER FOREARM. SOME RESISTENCE FELT WITH FLUSHING, REMOVED OLD IV FROM RFA, CATH INTACT, PT TOLERATED WELL. INSERTED NEW IV TO THE RAC 20G, ONE ATTEMPT. PT TOLERATED WELL. SECURED IV WITH PAPER TAPE AND TEGADERM. PT HAS RESIDUAL GENERALIZED SWELLING TO LEFT ARM WHICH IS WHY IN WAS NOT PLACED IN LEFT ARM. DR AWARE OF SWELLING, EDUCATED PT TO KEEP ARM ELEVATED ON PILLOW TO ASSIST WITH MOVEMENT OF FLUID. CALL LIGHT WITHIN REACH, BED IN LOWEST POSITION, WILL CONTINUE TO MONITOR.
--- NOTE | 2018-10-04 05:05 | NUR ---
PT RESTED IN INTERVAL DURING SHIFT, NO ACUTE CHANGES OCCURRING OVERNIGHT. PT MEDICATED X1 WITH BENADRYL FOR ITCHINESS ON STOMACH. DSG CHANGES PERFORMED ON PT ABD D/T PT WET HIS BANDAGES AFTER A SHOWER. PT HAS NEW IV TO THE RAC, REMAINS PATENT, NO REDNESS, SWELLING OR PAIN NOTED. PT TOLERATING ANTIBIOTICS WELL, ONLY REPORTS INTERMITTENT DIARRHEA. ALL COMFORT AND SAFETY MEASURES PROVIDED FOR, CALL LIGHT WITHIN REACH, BED IN LOWEST POSITION, WILL CONTINUE TO MONITOR.
[2018-10-04 05:30] VITALS: BP 115/53
--- NOTE | 2018-10-04 07:20 | NUR ---
RECEIVED PT. IN BED A/A/O X3. NO SOB, NO N/V NOTED. PT. DENIES ANY PAIN AT THIS TIME. NS RUNNING AT 100 CC/HR VIA IV SITE AT R . PT. IS ON CONTACT ISOLATION FOR MDRO E. COLI FROM PERITONEAL CAVITY. SCD TO BLE MAINTAINED. BED IN LOW POS., CALL LIGHT WITHIN REACH. SIDE RAILS UP X3.
--- NOTE | 2018-10-04 07:35 | NUR ---
ENDORSED ALL CARE TO DAYSHIFT NURSE, NO ACUTE DISTRESS NOTED. ALL QUESTIONS AND CONCERNS ADDRESSED, CALL LIGHT WITHIN REACH, BED IN LOWEST POSITION.
[2018-10-04 09:21] VITALS: BP 108/57
--- NOTE | 2018-10-04 14:30 | NUR ---
D/C HOME INSTRUCTIONS GIVEN TO PT. AND PT.'S WHO BOTH VERBALIZED UNDERSTANDING OF INSTRUCTIONS. IV H/L TO R AC REMOVED. PRESCRIPTION GIVEN. PHOTOGRAPHS OF ABD. INCISIONS TAKEN PRIOR TO DISCHARGE. ABD. WOUND CARE GIVEN.
--- NOTE | 2018-10-04 15:07 | NUR ---
PT. IS BEING DISCHARGED IN STABLE CONDITION VIA WHEELCHAIR. ALL BELONGINGS SENT HOME WITH PT. UPON DISCHARGE.
== END 2018-10-04 15:05 | disposition home or self-care (01) | DRG 853 ==
LOC: ED 02:59 → MU 05:50
PROVIDERS: Emergency Medicine; General Practice; Surgery; ADMIT Internal Medicine
PROC: 0DTJ4ZZ Resection of Appendix, Percutaneous Endoscopic Approach (ICD-10-PCS; principal; 2018-09-27 07:30)
DX: A41.9 Sepsis, unspecified organism (principal); N17.0 Acute kidney failure with tubular necrosis; K35.33 Acute appendicitis with perforation, localized peritonitis, and gangrene, with abscess; E78.00 Pure hypercholesterolemia, unspecified; B96.20 Unspecified Escherichia coli [E. coli] as the cause of diseases classified elsewhere; I80.8 Phlebitis and thrombophlebitis of other sites; E78.5 Hyperlipidemia, unspecified; I12.9 Hypertensive chronic kidney disease with stage 1 through stage 4 chronic kidney disease, or unspecified chronic kidney disease; N18.9 Chronic kidney disease, unspecified; E66.9 Obesity, unspecified; Z72.89 Other problems related to lifestyle; Z79.899 Other long term (current) drug therapy; Z82.49 Family history of ischemic heart disease and other diseases of the circulatory system; Z68.33 Body mass index [BMI] 33.0-33.9, adult
CPT/HCPCS: 94150; G0378; J0330; J1170; J2250; J2270; J2405; J2543; J2704; J2710; J3010; J3230; J3490; J7030; J7040; J7120; Q0092; Q0163